=== PATIENT | male | born 1950 ===

== ENCOUNTER 2020-10-11 09:40 | Outpatient (CLI) | payer OTHER | END 2020-10-11 23:59 | disposition home or self-care (01) | LOC: ROC 09:40 | PROVIDERS: ATTEND Radiology Radiation Oncology | DX: G50.0 Trigeminal neuralgia (principal) | CPT/HCPCS: 99214; G0463 ==

== ENCOUNTER → 2020-10-14 | Outpatient (CLI) | payer OTHER ==
[~2020-10-14] MED LIST: GADOTERATE 10 MMOL/20ML SYR ONE
== END | disposition home or self-care (01) ==
LOC: RAD 13:09
DX: G31.89 Other specified degenerative diseases of nervous system (principal); G50.0 Trigeminal neuralgia
CPT/HCPCS: 70553; A9575

== ENCOUNTER 2020-12-13 08:16 | Outpatient (CLI) | payer OTHER | END 2020-12-13 23:59 | disposition home or self-care (01) | LOC: ROC 08:16 | PROVIDERS: ATTEND Radiology Radiation Oncology | DX: G50.0 Trigeminal neuralgia (principal) | CPT/HCPCS: 99212; G0463 ==